=== PATIENT | male | born 1965 | race Caucasian/White ===

== ENCOUNTER 2018-05-20 19:10 | Emergency (ER) | payer MEDICAID ==
[~2018-05-20] VITALS: Ht 185.4 cm; Wt 80.0 kg
[~2018-05-20 19:10] MED LIST: NO HOME MEDS
[2018-05-20 19:40] VITALS: BP 103/79
--- NOTE | 2018-05-20 20:58 | NUR ---
REPORTS FROM REGISTRATION THAT PATIENT BEHAIVOR IS AGRRESIVE TOWARDS OTHER VISITORS AND STAFF IN THE LOBBY. CONSULTED WITH SECURITY. SECURITY REPORTS THAT PATIENT HAS HAD MULTIBLE WARNINGS TONIGHT. (IF YOUR BEHAVIOUR CONTINUES YOU WILL BE ASKED TO LEAVE.)
--- NOTE | 2018-05-20 21:10 | NUR ---
SECURITY REPORTS PATIENT ESCORTED OFF GROUNDS AFTER THREATS TO OTHER PATIENTS AND STAFF CONTINUED AFTER SEVERAL WARNINGS. DR. CAICEDOFS INFORMED.
== END 2018-05-20 21:29 | disposition left against medical advice (07) ==
LOC: ER 19:11
DX: M79.645 Pain in left finger(s) (principal); Z53.21 Procedure and treatment not carried out due to patient leaving prior to being seen by health care provider

== ENCOUNTER 2019-06-03 13:05 | Inpatient (IN) | payer MEDICAID ==
[~2019-06-03] VITALS: Ht 177.8 cm; Wt 75.0 kg
[2019-06-03] MEDS ORDERED: normal saline 1000ML IV soln IVB ONE ×2 (13:50→16:00)
[2019-06-03] MEDS ORDERED: ondansetron/PF 4mg/2ml inj IV ONE (13:50)
[2019-06-03] MEDS ORDERED: thiamine 100mg/ml 2ml inj. IV ONE (13:50)
[2019-06-03 14:18] LABS: BASOPHILS % (AUTO) 0.5 % (0-1); EOSINOPHILS % (AUTO) 0 % (0-6); HEMATOCRIT 43.7 % (42.0-52.0); HEMOGLOBIN 14.8 g/dl (14.0-17.9); LYMPHOCYTES # (AUTO) 0.8 X10'3 (1.1-4.8); LYMPHOCYTES % (AUTO) 9.3 % (21-51); MEAN CORPUSCULAR HEMOGLOBIN 32.5 PG (27.0-31.0); MEAN CORPUSCULAR HGB CONC 33.9 g/dL (33.0-36.5); MEAN CORPUSCULAR VOLUME 95.8 FL (78-98); MONOCYTES # (AUTO) 0.6 X10'3 (0-0.9); MONOCYTES % (AUTO) 7.1 % (2-12); NEUTROPHILS # (AUTO) 7.1 X10'3 (1.8-7.7); NEUTROPHILS % (AUTO) 83.1 % (42-75); PLATELET COUNT 149 X10'3 (140-440); RED BLOOD COUNT 4.56 X10'6 (4.70-6.10); RED CELL DISTRIBUTION WIDTH 13.9 % (11.5-14.5); WHITE BLOOD COUNT 8.6 X10'3 (4.5-11.0)
[2019-06-03] MEDS ORDERED: LORazepam 2 mg/ml vial IV ONE ×2 (14:25→15:50)
[2019-06-03 14:30] LABS: PARTIAL THROMBOPLASTIN TIME 26 SECONDS (22-32)
[2019-06-03 14:32] LABS: ALANINE AMINOTRANSFERASE 170 U/L (12-78); ALBUMIN 4.4 G/DL (3.4-5.0); ALKALINE PHOSPHATASE 86 IU/L (46-116); ANION GAP 25 (8-16); ASPARTATE AMINO TRANSFERASE 231 U/L (10-37); BILIRUBIN,TOTAL 1.6 MG/DL (0.1-1.0); BLOOD UREA NITROGEN 18 MG/DL (7-18); BUN/CREATININE RATIO 14.6 (5.4-32.0); CALCIUM 9.3 MG/DL (8.5-10.1); CHLORIDE 92 MMOL/L (99-107); CREATININE 1.23 MG/DL (0.60-1.10); ETHANOL < 0.010 GM/DL (0.0-0.010); GLUCOSE 142 MG/DL (70-104); POTASSIUM 4.2 MMOL/L (3.5-5.1); SODIUM 137 MMOL/L (135-145); TOTAL CARBON DIOXIDE 19.7 MMOL/L (24-32); TOTAL PROTEIN 8.7 G/DL (6.4-8.2); eGFR 61 ML/MIN
[2019-06-03] MEDS ORDERED: ONDA4TAB12 PO (15:05)
[2019-06-03] MEDS ORDERED: pantoprazole 40 MG vial IV ONE (15:50)
[2019-06-03 16:31] LABS: CLARITY,URINE CLEAR (Clear); COLOR,URINE YELLOW (Yellow); GLUCOSE, URINE NEGATIVE (Neg); KETONES,URINE >=80 mg/dl (Neg); LEUKOCYTE ESTERASE ,URINE NEGATIVE (Neg); NITRITES, URINE NEGATIVE (Neg); OCCULT BLOOD,URINE LARGE (Neg); PROTEIN,URINE >=300 mg/dl (Neg); UROBILINOGEN,URINE 0.2 E.U/dL (0.2-1.0)
[2019-06-03 16:32] LABS: UA COLLECTION TYPE URINAL
[2019-06-03] MEDS ORDERED: acetaminophen 325mg tablet PO PRN (16:35)
[2019-06-03] MEDS ORDERED: magnesium hydroxide 30ml (MOM) UD suspension PO PRN (16:35)
[2019-06-03] MEDS ORDERED: metoclopramide 5 mg/ml inj IV PRN (16:35)
[2019-06-03] MEDS ORDERED: dextrose 50%-water 50ml dispensing syringe IV PRN (16:35)
[2019-06-03] MEDS ORDERED: mag hydrox/Alum hydrox/simeth 30ml oral suspension PO PRN (16:35)
[2019-06-03] MEDS ORDERED: ondansetron/PF 4mg/2ml inj IV PRN (16:35)
[2019-06-03 16:41] LABS: BACTERIA,URINE FEW /HPF (Neg); HYALINE CASTS 0-3 /LPF (NEGATIVE); SQUAMOUS EPITHELIAL CELL,UR FEW /LPF (FEW); WBC,URINE 0-4 /HPF (0-4)
[2019-06-03 16:47] LABS: URINE AMPHETAMINE SCREEN POSITIVE (Neg); URINE BARBITUATE SCREEN NEGATIVE (Neg); URINE BENZODIAZEPINES SCREEN NEGATIVE (Neg); URINE CANNABINOID SCREEN POSITIVE (Neg); URINE COCAINE SCREEN NEGATIVE (Neg); URINE METHADONE SCREEN NEGATIVE (Neg); URINE OPIATE SCREEN NEGATIVE (Neg); URINE PHENCYCLIDINE SCREEN NEGATIVE (Neg)
--- NOTE | 2019-06-03 18:06 | NUR ---
Received report from KIKA Butler. Patient still in ER.
[2019-06-03 18:24] LABS: LIPASE 108 U/L (73-393)
--- NOTE | 2019-06-03 18:28 | NUR ---
gave report to oncoming nurse
--- NOTE | 2019-06-03 18:54 | NUR ---
Received report from KIKA Cruz. Awaiting patient arrival to the floor.
[2019-06-03 19:15] VITALS: BP 141/80
--- NOTE | 2019-06-03 19:15 | NUR ---
Patient arrived via gurney accompanied by RN to floor; placed in 358B. Ambulated to bed with SBA, alert and oriented x4 on room air, in no apparent distress. Call light and items of frequent use within reach. Will continue to monitor.
[2019-06-03] MEDS: pantoprazole 40 MG vial IV SCH (19:23)
[2019-06-03] MEDS: normal saline 1000ml 1,000 ML IV SCH (19:23)
[2019-06-04] VITALS: BP 132/82
[2019-06-04] MEDS: normal saline 1000ml 1,000 ML IV SCH ×3 (03:57→15:11)
[2019-06-04 06:01] LABS: BASOPHILS % (AUTO) 0.1 % (0-1); EOSINOPHILS % (AUTO) 0.2 % (0-6); HEMATOCRIT 37.7 % (42.0-52.0); HEMOGLOBIN 12.8 g/dl (14.0-17.9); LYMPHOCYTES % (AUTO) 14.5 % (21-51); MEAN CORPUSCULAR HEMOGLOBIN 32.4 PG (27.0-31.0); MEAN PLATELET VOLUME 8.3 FL (7.4-10.4); MONOCYTES # (AUTO) 0.8 X10'3 (0-0.9); MONOCYTES % (AUTO) 11.3 % (2-12); NEUTROPHILS # (AUTO) 5.3 X10'3 (1.8-7.7); NEUTROPHILS % (AUTO) 73.9 % (42-75); PLATELET COUNT 113 X10'3 (140-440); RED BLOOD COUNT 3.96 X10'6 (4.70-6.10); WHITE BLOOD COUNT 7.1 X10'3 (4.5-11.0)
[2019-06-04 06:14] LABS: ALBUMIN 3.4 G/DL (3.4-5.0); ANION GAP 11 (8-16); BLOOD UREA NITROGEN 24 MG/DL (7-18); BUN/CREATININE RATIO 21.8 (5.4-32.0); CALCIUM 8.1 MG/DL (8.5-10.1); CHLORIDE 102 MMOL/L (99-107); GLUCOSE 86 MG/DL (70-104); POTASSIUM 3.9 MMOL/L (3.5-5.1); SODIUM 138 MMOL/L (135-145); TOTAL CARBON DIOXIDE 25.4 MMOL/L (24-32); eGFR 70 ML/MIN
--- NOTE | 2019-06-04 06:29 | NUR ---
Problems reprioritized. Patient report given, questions answered & plan of care reviewed with KIKA Christy.
--- NOTE | 2019-06-04 07:03 | NUR ---
Patient in room SANDIP 358. I have received report from Qi ANAND and had the opportunity to ask questions and assume patient care.
[2019-06-04 07:10] VITALS: BP 143/81
[2019-06-04] MEDS: folic acid 1mg tablet PO SCH (08:05)
[2019-06-04] MEDS: thiamine 100mg tablet PO SCH (08:05)
[2019-06-04] MEDS: pantoprazole 40 MG vial IV SCH ×2 (08:06→20:02)
[2019-06-04] MEDS ORDERED: FLU VACC QS2019-20 36MOS UP/PF 60 MCG/0.5 ML SYRINGE IMVAC ONE (10:00)
[2019-06-04] MEDS ORDERED: pneumococcal 23-VAL P-sac vacc 25 mcg/0.5ml vial IMVAC ONE (10:00)
[2019-06-04 12:24] VITALS: BP 130/83
--- NOTE | 2019-06-04 15:19 | NUR ---
Malnutrition consult: Pt seen at bedside states he is unsure of his UBW however reports wt loss from 190 lbs to 165 lbs over greater than one year. If pt truly lost this weight this is non-significant wt loss of 13% in greater than one year. Pt reports wt loss occurred secondary to increasing physical activity. Patient's diet has just been advanced from NPO to clear liquid documented with 100% PO intake. Pt endorsing a good appetite at this time. Pt with no decrease in muscle strength, edema, or visible fat or muscle wasting. Pt currently does not meet criteria for malnutrition. Pt denies food allergies, difficulty chewing/swallowing, or constipation/diarrhea. Pt admitted with DTs currently receiving routine Thiamine and Folic acid. Pt provided with RD contact information. Will remain available. Addendum: 06/04/19 at [address] Amended: Links added.
[2019-06-04 18:00] VITALS: BP 130/69
--- NOTE | 2019-06-04 18:50 | NUR ---
Problems reprioritized. Patient report given, questions answered & plan of care reviewed with Prudence ANAND.
[2019-06-04] MEDS: LORazepam 2 mg/ml vial IV PRN (20:43)
--- NOTE | 2019-06-04 20:43 | NUR ---
Pulled Lorazepam 1.5 mg out of [facility] and Qi RN witnessed waste of 0.5mg from a 2mg vial. However, before physically wasting 0.5mg, it was noted that the order of Lorazepam as indicated fell off EMAR. Therefore, patient received full dose of Lorazepam 2mg/1ml as ordered by MD. Pharmacy notified. Charge nurse aware.
[2019-06-05] VITALS: BP_SYST 115; BP_SYST 130; BP_DIAS 69; BP_DIAS 81
[2019-06-05] MEDS: normal saline 1000ml 1,000 ML IV SCH (00:34)
[2019-06-05 06:03] LABS: BASOPHILS % (AUTO) 0.4 % (0-1); EOSINOPHILS # (AUTO) 0.1 X10'3 (0-0.9); EOSINOPHILS % (AUTO) 1.6 % (0-6); HEMATOCRIT 36.4 % (42.0-52.0); HEMOGLOBIN 12.4 g/dl (14.0-17.9); LYMPHOCYTES # (AUTO) 0.9 X10'3 (1.1-4.8); LYMPHOCYTES % (AUTO) 22.1 % (21-51); MEAN CORPUSCULAR HEMOGLOBIN 32.7 PG (27.0-31.0); MEAN CORPUSCULAR VOLUME 95.9 FL (78-98); MEAN PLATELET VOLUME 7.9 FL (7.4-10.4); MONOCYTES # (AUTO) 0.5 X10'3 (0-0.9); NEUTROPHILS # (AUTO) 2.6 X10'3 (1.8-7.7); NEUTROPHILS % (AUTO) 63.9 % (42-75); PLATELET COUNT 87 X10'3 (140-440); RED CELL DISTRIBUTION WIDTH 13.5 % (11.5-14.5); WHITE BLOOD COUNT 4.1 X10'3 (4.5-11.0)
[2019-06-05 06:26] LABS: ALBUMIN 2.9 G/DL (3.4-5.0); ANION GAP 7 (8-16); BLOOD UREA NITROGEN 14 MG/DL (7-18); BUN/CREATININE RATIO 17.5 (5.4-32.0); CALCIUM 8.2 MG/DL (8.5-10.1); CHLORIDE 102 MMOL/L (99-107); GLUCOSE 101 MG/DL (70-104); POTASSIUM 3.6 MMOL/L (3.5-5.1); SODIUM 136 MMOL/L (135-145); TOTAL CARBON DIOXIDE 27.5 MMOL/L (24-32); eGFR > 90 ML/MIN
--- NOTE | 2019-06-05 06:33 | NUR ---
I have reviewed and agree with all interventions, assessments performed and documented by KIKA Dowell. Problems reprioritized. Patient report given, questions answered & plan of care reviewed with KIKA Christy.
--- NOTE | 2019-06-05 06:35 | NUR ---
Problems reprioritized. Patient report given, questions answered & plan of care reviewed with Jaelyn ANAND.
--- NOTE | 2019-06-05 07:06 | NUR ---
Patient in room SANDIP 358. I have received report from Prudence ANAND and had the opportunity to ask questions and assume patient care.
[2019-06-05] MEDS: pantoprazole 40 MG vial IV SCH (07:30)
[2019-06-05] MEDS: LORazepam 2 mg/ml vial IV PRN (07:35)
[2019-06-05] MEDS: thiamine 100mg tablet PO SCH (07:39)
[2019-06-05] MEDS: folic acid 1mg tablet PO SCH (07:39)
[2019-06-05 08:00] VITALS: BP 138/91
[2019-06-05] MEDS ORDERED: folic acid tablet PO (10:58)
[2019-06-05] MEDS ORDERED: thiamine tablet PO (10:58)
[2019-06-05] MEDS ORDERED: OMEP40CA13 PO (10:58)
--- NOTE | 2019-06-05 11:26 | NUR ---
pt D/C'd per Dr Hutchinson. Pt c/o of chest pain early this morning aggravated by deep breathing. EKG done. ER Dr looked at it. report nothing to be concern at that point. Dr Hutchinson informed.
--- NOTE | 2019-06-05 13:58 | NUR ---
Discharge and medication instructions given to pt. Iv and Tele removed. Pt was escorted to main lobby at 1235. Jarrell passes provided by social and human services assistant.
[2019-06-05] MEDS ORDERED: LORazepam 1 MG tablet PO PRN (16:35)
[2019-06-05] MEDS ORDERED: LORazepam 2 mg/ml vial IV PRN (16:35)
[2019-06-07] MEDS ORDERED: LORazepam 1 MG tablet PO PRN (16:35)
[2019-06-07] MEDS ORDERED: LORazepam 2 mg/ml vial IV PRN (16:35)
== END 2019-06-05 12:37 | disposition home or self-care (01) | DRG 241 ==
LOC: ER 13:06 → ED HOLD 16:32 → EDBEDREQSVC 16:46 → EDBEDREQ 17:50 → SUR 3N 19:08
PROVIDERS: ADMIT Family Medicine; ATTEND Family Medicine
PROC: 3E0234Z Introduction of Serum, Toxoid and Vaccine into Muscle, Percutaneous Approach (ICD-10-PCS; principal; 2019-06-04)
PROC: 3E02340 Introduction of Influenza Vaccine into Muscle, Percutaneous Approach (ICD-10-PCS; 2019-06-04)
DX: K29.20 Alcoholic gastritis without bleeding (principal); N17.0 Acute kidney failure with tubular necrosis; E86.0 Dehydration; Z60.2 Problems related to living alone; F10.230 Alcohol dependence with withdrawal, uncomplicated; F12.90 Cannabis use, unspecified, uncomplicated; F15.10 Other stimulant abuse, uncomplicated; I10 Essential (primary) hypertension; Z72.0 Tobacco use; Z59.0 Homelessness; Z23 Encounter for immunization
CPT/HCPCS: 36415; 71045; 80048; 80053; 80305; 80320; 81001; 82948; 83690; 85025; 85610; 85730; 87081; 90732; 93005; 96374; 96375; 97116; 97161; 97530; 97535; 99285; C9113; G0378; J2060; J2405; J3411; J7030; Q2037

== ENCOUNTER 2021-03-02 18:58 | Emergency (ER) | payer MEDICAID ==
[~2021-03-02] VITALS: Ht 180.3 cm; Wt 80.0 kg
[~2021-03-02 18:58] MED LIST changes: -NO HOME MEDS; +folic acid tablet PO; +thiamine tablet PO
[2021-03-02] MEDS ORDERED: naloxone 0.4 mg/ml inj IV ONE (19:00)
[2021-03-02] MEDS ORDERED: naloxone 2mg/2ml inj 2 MG in normal saline 500ml IV soln 498 ML IV SCH (19:20)
[2021-03-02] MEDS ORDERED: naloxone 2mg/2ml inj IV ONE (19:20)
[2021-03-02] MEDS ORDERED: normal saline 1000ML IV soln IVB ONE (19:20)
[2021-03-02 19:50] LABS: BASOPHILS % (AUTO) 0.3 % (0-1); EOSINOPHILS # (AUTO) 0.1 X10'3 (0-0.9); EOSINOPHILS % (AUTO) 1.5 % (0-6); HEMATOCRIT 39.5 % (42.0-52.0); HEMOGLOBIN 13.4 g/dl (14.0-17.9); LYMPHOCYTES # (AUTO) 2.2 X10'3 (1.1-4.8); LYMPHOCYTES % (AUTO) 54.7 % (21-51); MEAN CORPUSCULAR HEMOGLOBIN 32.2 PG (27.0-31.0); MEAN CORPUSCULAR HGB CONC 33.8 g/dL (33.0-36.5); MEAN CORPUSCULAR VOLUME 95.2 FL (78-98); MONOCYTES # (AUTO) 0.3 X10'3 (0-0.9); MONOCYTES % (AUTO) 6.5 % (2-12); NEUTROPHILS # (AUTO) 1.5 X10'3 (1.8-7.7); PLATELET COUNT 160 X10'3 (140-440); RED BLOOD COUNT 4.15 X10'6 (4.70-6.10); RED CELL DISTRIBUTION WIDTH 14.2 % (11.5-14.5)
[2021-03-02 19:58] LABS: ALANINE AMINOTRANSFERASE 88 U/L (12-78); ALBUMIN 3.4 G/DL (3.4-5.0); ALBUMIN/GLOBULIN RATIO 0.8 (1.1-1.5); ALKALINE PHOSPHATASE 85 IU/L (46-116); ANION GAP 13 (8-16); ASPARTATE AMINO TRANSFERASE 148 U/L (10-37); BILIRUBIN,TOTAL 0.3 MG/DL (0.1-1.0); BLOOD UREA NITROGEN 6 MG/DL (7-18); BUN/CREATININE RATIO 6.8 (5.4-32.0); CALCIUM 7.9 MG/DL (8.5-10.1); CHLORIDE 102 MMOL/L (99-107); CREATININE 0.88 MG/DL (0.60-1.10); GLUCOSE 151 MG/DL (70-104); SODIUM 141 MMOL/L (135-145); TOTAL CARBON DIOXIDE 26.5 MMOL/L (24-32); TOTAL PROTEIN 7.6 G/DL (6.4-8.2); eGFR 90 ML/MIN
[2021-03-02 20:11] LABS: ETHANOL 0.321 GM/DL (0.0-0.010)
[2021-03-02 21:01] LABS: TOTAL CELLS COUNTED 100
[2021-03-02 21:02] LABS: PLATELET ESTIMATE NORMAL
[2021-03-02 21:31] LABS: URINE AMPHETAMINE SCREEN POSITIVE (Neg); URINE BARBITUATE SCREEN NEGATIVE (Neg); URINE BENZODIAZEPINES SCREEN NEGATIVE (Neg); URINE CANNABINOID SCREEN POSITIVE (Neg); URINE COCAINE SCREEN NEGATIVE (Neg); URINE METHADONE SCREEN NEGATIVE (Neg); URINE OPIATE SCREEN NEGATIVE (Neg); URINE PHENCYCLIDINE SCREEN NEGATIVE (Neg)
[2021-03-02 21:33] LABS: CLARITY,URINE CLEAR (Clear); COLOR,URINE YELLOW (Yellow); GLUCOSE, URINE NEGATIVE (Neg); PROTEIN,URINE TRACE mg/dl (Neg); UA COLLECTION TYPE URINAL
[2021-03-02 21:34] LABS: KETONES,URINE NEGATIVE (Neg); LEUKOCYTE ESTERASE ,URINE NEGATIVE (Neg); NITRITES, URINE NEGATIVE (Neg); OCCULT BLOOD,URINE SMALL (Neg); UROBILINOGEN,URINE 0.2 E.U/dL (0.2-1.0)
[2021-03-02 21:37] LABS: BACTERIA,URINE FEW /HPF (Neg); MUCUS STRANDS NONE SEEN /LPF (Neg); SQUAMOUS EPITHELIAL CELL,UR FEW /LPF (FEW); WBC,URINE 0-4 /HPF (0-4)
[2021-03-02] MEDS ORDERED: potassium Cl 10 mEq/100mL bag IV ONE (23:25)
[2021-03-02] MEDS ORDERED: potassium Cl 20 mEq SR tablet PO ONE (23:25)
[2021-03-03 03:07] VITALS: BP 110/67
[2021-03-03] MEDS ORDERED: NO HOME MEDS (20:21)
== END 2021-03-03 03:09 | disposition home or self-care (01) ==
LOC: ER 18:59
DX: T40.411A Poisoning by fentanyl or fentanyl analogs, accidental (unintentional), initial encounter (principal); R09.2 Respiratory arrest; R00.0 Tachycardia, unspecified; I10 Essential (primary) hypertension; F12.90 Cannabis use, unspecified, uncomplicated; E87.6 Hypokalemia; F15.10 Other stimulant abuse, uncomplicated; Z72.89 Other problems related to lifestyle; Z60.2 Problems related to living alone; Z59.00 Homelessness unspecified; Z56.0 Unemployment, unspecified; Z79.899 Other long term (current) drug therapy; Y92.89 Other specified places as the place of occurrence of the external cause
CPT/HCPCS: 36415; 71045; 80053; 80305; 80320; 81001; 84484; 85007; 85025; 93005; 96365; 96375; 99285; J2310; J3480; J7030

== ENCOUNTER 2021-03-03 15:34 | Inpatient (IN) | payer MEDICAID ==
[~2021-03-03] VITALS: Ht 185.4 cm; Wt 73.5 kg
--- NOTE | 2021-03-03 18:00 | NUR ---
PATIENT RECEIVED IN BED 6.
[2021-03-03] MEDS ORDERED: normal saline 1000ML IV soln IV ONE ×2 (18:10→19:00)
[2021-03-03] MEDS ORDERED: CLINDAMYCIN/D5W 900mg/50ml 50 ML IV ONE (18:35)
[2021-03-03 18:39] LABS: BASOPHILS % (AUTO) 0.4 % (0-1); EOSINOPHILS % (AUTO) 0.4 % (0-6); HEMATOCRIT 44.3 % (42.0-52.0); HEMOGLOBIN 15.2 g/dl (14.0-17.9); LYMPHOCYTES # (AUTO) 0.8 X10'3 (1.1-4.8); LYMPHOCYTES % (AUTO) 8.6 % (21-51); MEAN CORPUSCULAR HEMOGLOBIN 32.2 PG (27.0-31.0); MEAN CORPUSCULAR HGB CONC 34.4 g/dL (33.0-36.5); MEAN CORPUSCULAR VOLUME 93.6 FL (78-98); MEAN PLATELET VOLUME 7.6 FL (7.4-10.4); MONOCYTES # (AUTO) 0.5 X10'3 (0-0.9); MONOCYTES % (AUTO) 5.4 % (2-12); NEUTROPHILS # (AUTO) 7.9 X10'3 (1.8-7.7); NEUTROPHILS % (AUTO) 85.2 % (42-75); PLATELET COUNT 159 X10'3 (140-440); RED BLOOD COUNT 4.73 X10'6 (4.70-6.10); RED CELL DISTRIBUTION WIDTH 13.8 % (11.5-14.5); WHITE BLOOD COUNT 9.3 X10'3 (4.5-11.0)
[2021-03-03 18:50] LABS: ALANINE AMINOTRANSFERASE 77 U/L (12-78); ALBUMIN 3.3 G/DL (3.4-5.0); ALBUMIN/GLOBULIN RATIO 0.7 (1.1-1.5); ALKALINE PHOSPHATASE 41 IU/L (46-116); ANION GAP 13 (8-16); ASPARTATE AMINO TRANSFERASE 75 U/L (10-37); BILIRUBIN,TOTAL 0.7 MG/DL (0.1-1.0); BLOOD UREA NITROGEN 15 MG/DL (7-18); BUN/CREATININE RATIO 13.4 (5.4-32.0); CALCIUM 8.6 MG/DL (8.5-10.1); CHLORIDE 102 MMOL/L (99-107); CREATININE 1.12 MG/DL (0.60-1.10); GLUCOSE 126 MG/DL (70-104); MAGNESIUM 1.1 MG/DL (1.5-2.4); POTASSIUM 4.7 MMOL/L (3.5-5.1); SODIUM 144 MMOL/L (135-145); TOTAL CARBON DIOXIDE 28.8 MMOL/L (24-32); eGFR 68 ML/MIN
[2021-03-03] MEDS: normal saline 1000ml 1,000 ML IV SCH (19:50)
[2021-03-03] MEDS ORDERED: acetaminophen 325mg tablet PO PRN (19:50)
[2021-03-03] MEDS ORDERED: magnesium hydroxide 30ml (MOM) UD suspension PO PRN (19:50)
[2021-03-03] MEDS ORDERED: mag hydrox/Alum hydrox/simeth 30ml oral suspension PO PRN (19:50)
[2021-03-03] MEDS ORDERED: CefTRIAXone/D5W-Rocephin 1gm 50 ML IV ONE (20:00)
[2021-03-03] MEDS ORDERED: LORazepam 2 mg/ml vial IV PRN ×2 (20:00)
[2021-03-03] MEDS ORDERED: thiamine inj. 100 MG in normal saline 100ml IV soln 100 ML IV ONE (20:00)
[2021-03-03] MEDS ORDERED: NO HOME MEDS (20:21)
[2021-03-03] MEDS: docusate sod 100mg capsule PO SCH (20:53)
[2021-03-03] MEDS: heparin, porcine 5000 units/ml vial SQ SCH (20:54)
[2021-03-03] MEDS: thiamine 100mg tablet PO SCH (20:59)
--- NOTE | 2021-03-03 21:23 | NUR ---
Patient in room . I have received report from MATERIAL PLANNING ANALYSTKIKA ABURTO and had the opportunity to ask questions and will assume patient care upon arrival to the floor. Addendum: 03/03/21 at 2124 by Jacqueline Perez RN Amended: Links added.
[2021-03-03 22:00] VITALS: BP 147/89
--- NOTE | 2021-03-03 23:00 | NUR ---
PT C/O ALL OVER BODY PAIN MEDICATED WITH TYLENOL FOR IT.
[2021-03-04] VITALS (7 sets, daily range): BP systolic 134–167; BP diastolic 82–96
[2021-03-04] MEDS: normal saline 1000ml 1,000 ML IV SCH ×3 (00:05→22:35)
--- NOTE | 2021-03-04 01:00 | NUR ---
UP TO BRP HAD A BM & VOID TOLERATED FAIR.
[2021-03-04] MEDS: CefTRIAXone/D5W-Rocephin 1gm 50 ML IV SCH (01:54)
[2021-03-04] MEDS: CLINDAMYCIN 300mg/NS 50ml IVPB 50 ML IV SCH ×4 (02:03→21:24)
--- NOTE | 2021-03-04 06:09 | NUR ---
Problems reprioritized. Patient report given, questions answered & plan of care reviewed with YOMI ANAND. Addendum: 03/04/21 at 0611 by Jacqueline Perez RN Amended: Links added.
--- NOTE | 2021-03-04 06:13 | NUR ---
Patient in room PCU 3023. I have received report from Vivian ANAND and had the opportunity to ask questions and assume patient care.
[2021-03-04 06:31] LABS: BASOPHILS % (AUTO) 0.1 % (0-1); EOSINOPHILS % (AUTO) 0.2 % (0-6); HEMATOCRIT 36.3 % (42.0-52.0); HEMOGLOBIN 12.4 g/dl (14.0-17.9); LYMPHOCYTES # (AUTO) 1.2 X10'3 (1.1-4.8); LYMPHOCYTES % (AUTO) 16.7 % (21-51); MEAN CORPUSCULAR HEMOGLOBIN 32.1 PG (27.0-31.0); MEAN CORPUSCULAR HGB CONC 34.1 g/dL (33.0-36.5); MEAN CORPUSCULAR VOLUME 94.2 FL (78-98); MEAN PLATELET VOLUME 7.8 FL (7.4-10.4); MONOCYTES # (AUTO) 0.4 X10'3 (0-0.9); MONOCYTES % (AUTO) 6.1 % (2-12); NEUTROPHILS # (AUTO) 5.4 X10'3 (1.8-7.7); NEUTROPHILS % (AUTO) 76.9 % (42-75); PLATELET COUNT 114 X10'3 (140-440); RED BLOOD COUNT 3.85 X10'6 (4.70-6.10); RED CELL DISTRIBUTION WIDTH 13.9 % (11.5-14.5)
[2021-03-04 06:37] LABS: ALANINE AMINOTRANSFERASE 53 U/L (12-78); ALBUMIN 2.4 G/DL (3.4-5.0); ALBUMIN/GLOBULIN RATIO 0.6 (1.1-1.5); ALKALINE PHOSPHATASE 27 IU/L (46-116); ANION GAP 10 (8-16); ASPARTATE AMINO TRANSFERASE 59 U/L (10-37); BILIRUBIN,TOTAL 0.6 MG/DL (0.1-1.0); BLOOD UREA NITROGEN 13 MG/DL (7-18); BUN/CREATININE RATIO 19.1 (5.4-32.0); CALCIUM 7.4 MG/DL (8.5-10.1); CHLORIDE 106 MMOL/L (99-107); CREATININE 0.68 MG/DL (0.60-1.10); GLUCOSE 92 MG/DL (70-104); POTASSIUM 3.6 MMOL/L (3.5-5.1); SODIUM 142 MMOL/L (135-145); TOTAL CARBON DIOXIDE 25.9 MMOL/L (24-32); TOTAL PROTEIN 6.1 G/DL (6.4-8.2); eGFR > 90 ML/MIN
[2021-03-04 07:12] LABS: MAGNESIUM 1.1 MG/DL (1.5-2.4)
[2021-03-04] MEDS: docusate sod 100mg capsule PO SCH ×2 (07:53→21:22)
[2021-03-04] MEDS: thiamine 100mg tablet PO SCH (07:53)
[2021-03-04] MEDS: heparin, porcine 5000 units/ml vial SQ SCH ×2 (07:56→21:24)
--- NOTE | 2021-03-04 08:21 | NUR ---
Paged Dr. Jacobson Re: Shorty Schulte, [id number]. Pt SOB, may I have orders for RT EVAL and mg protocol repl? Current value 1.1. Please Advise, Mikala ANAND [phone]
--- NOTE | 2021-03-04 09:45 | NUR ---
Dr. Jacobson at bedside with Nurse and patient. MD aware of pts chest X ray. New orders; replacement protocol for mg/K+, Sputu, culture, Morphine 2mg Q4 PRN for pain and [place] 5 Q4 PRN. RT eval, PT eval and Seizure precautions. We will continue to monitor.
[2021-03-04] MEDS ORDERED: potassium Cl 40MEQ/1/2NS 520ml 520 ML IV PRN (09:50)
[2021-03-04] MEDS ORDERED: magnesium 4gm in 100ml NS 100 ML IV PRN (09:50)
[2021-03-04] MEDS ORDERED: potassium Cl 20 mEq SR tablet PO PRN (09:50)
[2021-03-04] MEDS ORDERED: COVID-19 VACC, MRNA(PFIZER)/PF--BNT162b2 syringe IMVAC ONE (10:00)
[2021-03-04] MEDS: HYDROcodone/acetaminophen 5mg/325mg tablet PO PRN ×3 (10:40→21:23)
[2021-03-04] MEDS: magnesium Cl slow-release 64mg tablet PO PRN ×2 (10:40→17:03)
[2021-03-04] MEDS: morphine 2 MG/ML inj. syringe IV PRN ×2 (10:41→15:58)
--- NOTE | 2021-03-04 11:20 | NUR ---
Malnutrition consult: Most recent scaled wt hx in [facility] is 75 kg taken 06/03/2019 with gurney scale, current scaled wt is 77.27 kg. Wt appears stable. Pending documentation of PO intake on regular diet. Pt with no documented decrease in muscle strength or edema. Pt currently lacks a minimum of two criteria for malnutrition. Will continue to follow and monitor qualifying criteria. Addendum: 03/04/21 at [address] Amended: Links added.
--- NOTE | 2021-03-04 11:45 | NUR ---
Dr. Jacobson called to request PBNP and trops to be done now. Orders in and lab called. We will continue to monitor.
--- NOTE | 2021-03-04 14:36 | NUR ---
Paged Dr. Jacobson PAGER ID: [phone] MESSAGE: Re: Shorty Schulte [id number]. Lab results are in. Trops 76, EVYX 946. Please advise, Mikala ANAND [phone] Addendum: 03/04/21 at 1448 by Mikala Clinton RN Dr. Jacobson is aware of labs. New order ECHO. Will continue to monitor.
--- NOTE | 2021-03-04 14:37 | NUR ---
Requested meds. Please send Zithromax IV bag for pt. Thank you
[2021-03-04] MEDS ORDERED: PERFLUTREN PROTEIN-A MICROSPHR (Optison) 0.22 MG/ML 3ML VIAL IV ONE (14:50)
[2021-03-04] MEDS: azithromycin/NS 500mg/250ml 250 ML IV SCH (15:57)
--- NOTE | 2021-03-04 16:24 | NUR ---
Paged Dr. Jacobson PAGER ID: [phone] MESSAGE: Re: Shorty Schulte [id number]. Pt tropin levels are now 78 critical value. Thank you Mikala ANAND [phone]
--- NOTE | 2021-03-04 18:07 | NUR ---
Problems reprioritized. Patient report given, questions answered & plan of care reviewed with Rebeca ANAND.
--- NOTE | 2021-03-04 18:15 | NUR ---
Patient in room PCU 3023. I have received report from KIKA Bach and had the opportunity to ask questions and assume patient care.
--- NOTE | 2021-03-04 18:37 | NUR ---
Patient in room PCU 3023. I have received report from Mikala ANAND and had the opportunity to ask questions and assume patient care.
[2021-03-04] MEDS: K and/or MAG REPLACEMENT MC SCH (20:00)
[2021-03-04] MEDS: lactobacillus rhamnosus 10,000 MMU CELLS/CAPSULE PO SCH (21:21)
[2021-03-05] MEDS: CLINDAMYCIN 300mg/NS 50ml IVPB 50 ML IV SCH ×4 (01:59→20:05)
[2021-03-05] MEDS: HYDROcodone/acetaminophen 5mg/325mg tablet PO PRN ×3 (02:15→14:28)
[2021-03-05 02:30] VITALS: BP 156/103
[2021-03-05 02:32] VITALS: BP 160/93
[2021-03-05] MEDS: morphine 2 MG/ML inj. syringe IV PRN ×2 (03:27→08:01)
[2021-03-05 05:56] LABS: ALANINE AMINOTRANSFERASE 43 U/L (12-78); ALBUMIN 2.3 G/DL (3.4-5.0); ALBUMIN/GLOBULIN RATIO 0.6 (1.1-1.5); ALKALINE PHOSPHATASE 40 IU/L (46-116); ANION GAP 9 (8-16); ASPARTATE AMINO TRANSFERASE 46 U/L (10-37); BILIRUBIN,TOTAL 0.8 MG/DL (0.1-1.0); BLOOD UREA NITROGEN 10 MG/DL (7-18); BUN/CREATININE RATIO 15.2 (5.4-32.0); CALCIUM 8.1 MG/DL (8.5-10.1); CHLORIDE 100 MMOL/L (99-107); CREATININE 0.66 MG/DL (0.60-1.10); GLUCOSE 96 MG/DL (70-104); POTASSIUM 3.3 MMOL/L (3.5-5.1); SODIUM 137 MMOL/L (135-145); TOTAL CARBON DIOXIDE 27.8 MMOL/L (24-32); TOTAL PROTEIN 6.2 G/DL (6.4-8.2); eGFR > 90 ML/MIN
[2021-03-05 06:05] LABS: BASOPHILS % (AUTO) 0.1 % (0-1); EOSINOPHILS % (AUTO) 0.5 % (0-6); HEMATOCRIT 36.5 % (42.0-52.0); HEMOGLOBIN 12.7 g/dl (14.0-17.9); LYMPHOCYTES # (AUTO) 0.8 X10'3 (1.1-4.8); LYMPHOCYTES % (AUTO) 10.4 % (21-51); MEAN CORPUSCULAR HEMOGLOBIN 32.7 PG (27.0-31.0); MEAN CORPUSCULAR HGB CONC 34.9 g/dL (33.0-36.5); MEAN CORPUSCULAR VOLUME 93.8 FL (78-98); MONOCYTES # (AUTO) 0.4 X10'3 (0-0.9); MONOCYTES % (AUTO) 5.4 % (2-12); NEUTROPHILS # (AUTO) 6.6 X10'3 (1.8-7.7); NEUTROPHILS % (AUTO) 83.6 % (42-75); PLATELET COUNT 114 X10'3 (140-440); RED BLOOD COUNT 3.89 X10'6 (4.70-6.10); RED CELL DISTRIBUTION WIDTH 13.5 % (11.5-14.5); WHITE BLOOD COUNT 7.9 X10'3 (4.5-11.0)
--- NOTE | 2021-03-05 06:30 | NUR ---
Patient in room PCU 3023. I have received report from Rebeca ANAND and had the opportunity to ask questions and assume patient care.
--- NOTE | 2021-03-05 06:45 | NUR ---
Problems reprioritized. Patient report given, questions answered & plan of care reviewed with Gera, RN and Marvin, student RN.
--- NOTE | 2021-03-05 07:12 | NUR ---
I have reviewed all the notes of this nursing education consultant, Dileep Thompson, and agree with assessments and documentation there in.
--- NOTE | 2021-03-05 07:24 | NUR ---
Student Medication Administration: For this medication-pass time frame, all medication were reviewed, dispensed, administered and documented per hospital policy by Dileep Thompson RN.
[2021-03-05 07:38] VITALS: BP 151/94
[2021-03-05] MEDS: thiamine 100mg tablet PO SCH (07:54)
[2021-03-05] MEDS: lactobacillus rhamnosus 10,000 MMU CELLS/CAPSULE PO SCH ×2 (07:54→20:05)
[2021-03-05] MEDS: docusate sod 100mg capsule PO SCH ×2 (07:54→20:05)
[2021-03-05] MEDS: normal saline 1000ml 1,000 ML IV SCH ×2 (07:57→20:07)
[2021-03-05] MEDS: K and/or MAG REPLACEMENT MC SCH ×2 (08:00→20:00)
[2021-03-05] MEDS: heparin, porcine 5000 units/ml vial SQ SCH ×2 (08:05→20:06)
[2021-03-05] MEDS: ondansetron/PF 4mg/2ml inj IV PRN (08:11)
[2021-03-05] MEDS: CefTRIAXone/D5W-Rocephin 1gm 50 ML IV SCH (08:57)
[2021-03-05] MEDS: azithromycin/NS 500mg/250ml 250 ML IV SCH (09:57)
[2021-03-05 11:58] VITALS: BP 128/79
[2021-03-05] MEDS: potassium Cl 20 mEq SR tablet PO PRN ×3 (13:08→23:29)
[2021-03-05 15:25] LABS: MAGNESIUM 1.2 MG/DL (1.5-2.4)
[2021-03-05 16:01] VITALS: BP 131/76
[2021-03-05] MEDS: magnesium Cl slow-release 64mg tablet PO PRN ×2 (17:17→23:29)
--- NOTE | 2021-03-05 17:44 | NUR ---
Student documentation: I have reviewed and agree with all interventions, assessments performed and documented by Tee JEFFERY.
--- NOTE | 2021-03-05 18:25 | NUR ---
Problems reprioritized. Patient report given, questions answered & plan of care reviewed with Alley ANAND.
[2021-03-05 18:30] VITALS: BP 134/79
--- NOTE | 2021-03-05 18:30 | NUR ---
Patient in room U 3023. I have received report from KIKA Boss and had the opportunity to ask questions and assume patient care. Addendum: 03/05/21 at 1932 by Anuja Porter RN Amended: Links added.
[2021-03-06 02:00] VITALS: BP 151/101
--- NOTE | 2021-03-06 02:00 | NUR ---
B/P ELEVATED C/O PAIN AFTER COUGHING, SL AGITATED Addendum: 03/06/21 at 0250 by Anuja Porter RN Amended: Links added.
[2021-03-06] MEDS: CLINDAMYCIN 300mg/NS 50ml IVPB 50 ML IV SCH ×4 (02:19→22:00)
[2021-03-06] MEDS: HYDROcodone/acetaminophen 5mg/325mg tablet PO PRN ×2 (02:26→22:22)
[2021-03-06] MEDS: normal saline 1000ml 1,000 ML IV SCH ×2 (05:33→13:20)
--- NOTE | 2021-03-06 05:41 | NUR ---
DEBRA TAKES OXYGEN OFF AND SATS DROP DOWN IN 80 AND BRIEFLY HIGH 70'S. SAT IN THE 90'S ON 6 L N/C Addendum: 03/06/21 at 0541 by Anuja Porter RN Amended: Links added.
[2021-03-06 06:00] VITALS: BP 151/98
--- NOTE | 2021-03-06 06:24 | NUR ---
Problems reprioritized. Patient report given, questions answered & plan of care reviewed with KIKA Regan. Addendum: 03/06/21 at 0624 by Anuja Porter RN Amended: Links added.
[2021-03-06 06:53] LABS: ALANINE AMINOTRANSFERASE 34 U/L (12-78); ALBUMIN 2.2 G/DL (3.4-5.0); ALBUMIN/GLOBULIN RATIO 0.6 (1.1-1.5); ALKALINE PHOSPHATASE 57 IU/L (46-116); ANION GAP 8 (8-16); ASPARTATE AMINO TRANSFERASE 35 U/L (10-37); BASOPHILS % (AUTO) 0.1 % (0-1); BILIRUBIN,TOTAL 0.8 MG/DL (0.1-1.0); BLOOD UREA NITROGEN 9 MG/DL (7-18); CALCIUM 7.9 MG/DL (8.5-10.1); CHLORIDE 103 MMOL/L (99-107); CREATININE 0.69 MG/DL (0.60-1.10); EOSINOPHILS # (AUTO) 0.1 X10'3 (0-0.9); EOSINOPHILS % (AUTO) 1.5 % (0-6); GLUCOSE 91 MG/DL (70-104); HEMATOCRIT 35.4 % (42.0-52.0); HEMOGLOBIN 12.2 g/dl (14.0-17.9); LYMPHOCYTES # (AUTO) 1.1 X10'3 (1.1-4.8); LYMPHOCYTES % (AUTO) 18.7 % (21-51); MEAN CORPUSCULAR HEMOGLOBIN 31.9 PG (27.0-31.0); MEAN CORPUSCULAR HGB CONC 34.5 g/dL (33.0-36.5); MEAN CORPUSCULAR VOLUME 92.3 FL (78-98); MEAN PLATELET VOLUME 7.7 FL (7.4-10.4); MONOCYTES # (AUTO) 0.6 X10'3 (0-0.9); MONOCYTES % (AUTO) 10.4 % (2-12); NEUTROPHILS % (AUTO) 69.3 % (42-75); PLATELET COUNT 131 X10'3 (140-440); POTASSIUM 3.6 MMOL/L (3.5-5.1); RED BLOOD COUNT 3.84 X10'6 (4.70-6.10); RED CELL DISTRIBUTION WIDTH 13.5 % (11.5-14.5); SODIUM 140 MMOL/L (135-145); TOTAL CARBON DIOXIDE 29.1 MMOL/L (24-32); TOTAL PROTEIN 6.1 G/DL (6.4-8.2); WHITE BLOOD COUNT 5.7 X10'3 (4.5-11.0); eGFR > 90 ML/MIN
[2021-03-06] MEDS: thiamine 100mg tablet PO SCH (07:57)
[2021-03-06] MEDS: lactobacillus rhamnosus 10,000 MMU CELLS/CAPSULE PO SCH ×2 (07:57→22:01)
[2021-03-06] MEDS: heparin, porcine 5000 units/ml vial SQ SCH ×2 (07:58→22:00)
[2021-03-06] MEDS: docusate sod 100mg capsule PO SCH ×2 (07:58→20:00)
[2021-03-06] MEDS ORDERED: magnesium Cl slow-release 64mg tablet PO PRN ×2 (08:16→08:20)
[2021-03-06] MEDS: CefTRIAXone/D5W-Rocephin 1gm 50 ML IV SCH (08:21)
[2021-03-06] MEDS: azithromycin/NS 500mg/250ml 250 ML IV SCH (08:21)
[2021-03-06] MEDS: K and/or MAG REPLACEMENT MC SCH ×2 (08:44→20:00)
[2021-03-06] MEDS: ondansetron/PF 4mg/2ml inj IV PRN (08:45)
[2021-03-06] MEDS: morphine 2 MG/ML inj. syringe IV PRN ×2 (08:45→13:21)
[2021-03-06] MEDS ORDERED: COVID-19 VACC, MRNA(PFIZER)/PF--BNT162b2 syringe IMVAC ONE (10:00)
--- NOTE | 2021-03-06 10:30 | NUR ---
CALLED PHARMACY IN REGARDS TO PFIZER VACCINE, THEY STATE IT WILL BE READY AFTER 1200
[2021-03-06 11:00] VITALS: BP 136/86
--- NOTE | 2021-03-06 11:03 | NUR ---
Dr Murphy saw pt and advised to remove pt from oxygen. pt was taken off and sats dropped to the 70's. pt was placed back on 6L as previous
[2021-03-06 15:00] VITALS: BP 150/86
[2021-03-06 18:00] VITALS: BP 184/94
[2021-03-06 22:00] VITALS: BP 146/85
[2021-03-07] MEDS: CLINDAMYCIN 300mg/NS 50ml IVPB 50 ML IV SCH ×4 (01:40→19:32)
[2021-03-07 02:00] VITALS: BP 145/93
[2021-03-07 06:00] VITALS: BP 142/65
--- NOTE | 2021-03-07 06:26 | NUR ---
Problems reprioritized. Patient report given, questions answered & plan of care reviewed with KIKA Regan.
[2021-03-07 06:57] LABS: BASOPHILS % (AUTO) 0.4 % (0-1); EOSINOPHILS # (AUTO) 0.1 X10'3 (0-0.9); EOSINOPHILS % (AUTO) 1.9 % (0-6); HEMATOCRIT 35.6 % (42.0-52.0); HEMOGLOBIN 12.3 g/dl (14.0-17.9); LYMPHOCYTES % (AUTO) 18.4 % (21-51); MEAN CORPUSCULAR HEMOGLOBIN 32.1 PG (27.0-31.0); MEAN CORPUSCULAR HGB CONC 34.5 g/dL (33.0-36.5); MEAN PLATELET VOLUME 7.3 FL (7.4-10.4); MONOCYTES # (AUTO) 1.2 X10'3 (0-0.9); MONOCYTES % (AUTO) 21.9 % (2-12); NEUTROPHILS # (AUTO) 3.3 X10'3 (1.8-7.7); NEUTROPHILS % (AUTO) 57.4 % (42-75); PLATELET COUNT 143 X10'3 (140-440); RED BLOOD COUNT 3.83 X10'6 (4.70-6.10); RED CELL DISTRIBUTION WIDTH 13.6 % (11.5-14.5); WHITE BLOOD COUNT 5.7 X10'3 (4.5-11.0)
[2021-03-07] MEDS: azithromycin 250mg tablet PO SCH (07:43)
[2021-03-07] MEDS: CefTRIAXone/D5W-Rocephin 1gm 50 ML IV SCH (07:43)
[2021-03-07] MEDS: docusate sod 100mg capsule PO SCH ×2 (07:44→19:33)
[2021-03-07] MEDS: lactobacillus rhamnosus 10,000 MMU CELLS/CAPSULE PO SCH ×2 (07:44→19:33)
[2021-03-07] MEDS: thiamine 100mg tablet PO SCH (07:44)
[2021-03-07] MEDS: heparin, porcine 5000 units/ml vial SQ SCH ×2 (07:45→19:34)
[2021-03-07] MEDS: K and/or MAG REPLACEMENT MC SCH ×2 (07:46→19:33)
[2021-03-07 08:27] LABS: ALANINE AMINOTRANSFERASE 35 U/L (12-78); ALBUMIN 2.3 G/DL (3.4-5.0); ALBUMIN/GLOBULIN RATIO 0.6 (1.1-1.5); ALKALINE PHOSPHATASE 59 IU/L (46-116); ANION GAP 8 (8-16); ASPARTATE AMINO TRANSFERASE 40 U/L (10-37); BILIRUBIN,TOTAL 0.7 MG/DL (0.1-1.0); BLOOD UREA NITROGEN 8 MG/DL (7-18); BUN/CREATININE RATIO 11.1 (5.4-32.0); CALCIUM 8.2 MG/DL (8.5-10.1); CHLORIDE 101 MMOL/L (99-107); CREATININE 0.72 MG/DL (0.60-1.10); GLUCOSE 97 MG/DL (70-104); POTASSIUM 3.5 MMOL/L (3.5-5.1); SODIUM 139 MMOL/L (135-145); TOTAL CARBON DIOXIDE 30.1 MMOL/L (24-32); TOTAL PROTEIN 6.3 G/DL (6.4-8.2); eGFR > 90 ML/MIN
[2021-03-07] MEDS: HYDROcodone/acetaminophen 5mg/325mg tablet PO PRN ×3 (08:46→19:49)
--- NOTE | 2021-03-07 09:41 | NUR ---
Met with patient in regards to alcohol use and to see if patient was interested in treatment. Patient would like to go to rehab. I gave patient my card and when he is close to discharge I will help patient with getting into a rehab facility.
[2021-03-07 10:13] LABS: PLATELET ESTIMATE NORMAL; TOTAL CELLS COUNTED 100
[2021-03-07 11:00] VITALS: BP 154/45
[2021-03-07] MEDS: normal saline 1000ml 1,000 ML IV SCH ×2 (13:50→23:50)
[2021-03-07 15:00] VITALS: BP 110/63
[2021-03-07] MEDS ORDERED: albuterol 2.5 MG/3 ML nebule NEB PRN (16:50)
[2021-03-07] MEDS ORDERED: ipratropium/albuterol 3ml nebule NEB PRN (16:50)
[2021-03-07 18:00] VITALS: BP 163/103
[2021-03-07] MEDS: methylPREDNISolone sod succ/PF 40mg inj. IV SCH (19:32)
[2021-03-07 22:00] VITALS: BP 139/93
[2021-03-08 02:00] VITALS: BP 159/68
[2021-03-08] MEDS: CLINDAMYCIN 300mg/NS 50ml IVPB 50 ML IV SCH ×4 (02:52→20:49)
[2021-03-08] MEDS: normal saline 1000ml 1,000 ML IV SCH ×3 (02:53→20:48)
[2021-03-08 06:00] VITALS: BP 145/90
--- NOTE | 2021-03-08 06:29 | NUR ---
Problems reprioritized. Patient report given, questions answered & plan of care reviewed with KIKA Sauceda.
[2021-03-08 06:50] LABS: BASOPHILS % (AUTO) 0.3 % (0-1); EOSINOPHILS % (AUTO) 0 % (0-6); HEMATOCRIT 39.8 % (42.0-52.0); HEMOGLOBIN 13.8 g/dl (14.0-17.9); LYMPHOCYTES # (AUTO) 0.7 X10'3 (1.1-4.8); LYMPHOCYTES % (AUTO) 20.7 % (21-51); MEAN CORPUSCULAR HEMOGLOBIN 31.8 PG (27.0-31.0); MEAN CORPUSCULAR HGB CONC 34.5 g/dL (33.0-36.5); MEAN CORPUSCULAR VOLUME 92.1 FL (78-98); MEAN PLATELET VOLUME 7.8 FL (7.4-10.4); MONOCYTES # (AUTO) 0.6 X10'3 (0-0.9); MONOCYTES % (AUTO) 17.3 % (2-12); NEUTROPHILS # (AUTO) 2.2 X10'3 (1.8-7.7); NEUTROPHILS % (AUTO) 61.7 % (42-75); PLATELET COUNT 197 X10'3 (140-440); RED BLOOD COUNT 4.32 X10'6 (4.70-6.10); RED CELL DISTRIBUTION WIDTH 13.7 % (11.5-14.5); WHITE BLOOD COUNT 3.6 X10'3 (4.5-11.0)
[2021-03-08 07:36] LABS: ALANINE AMINOTRANSFERASE 30 U/L (12-78); ALBUMIN 2.4 G/DL (3.4-5.0); ALBUMIN/GLOBULIN RATIO 0.5 (1.1-1.5); ALKALINE PHOSPHATASE 60 IU/L (46-116); ANION GAP 12 (8-16); ASPARTATE AMINO TRANSFERASE 27 U/L (10-37); BILIRUBIN,TOTAL 0.6 MG/DL (0.1-1.0); BLOOD UREA NITROGEN 13 MG/DL (7-18); BUN/CREATININE RATIO 18.3 (5.4-32.0); CALCIUM 8.7 MG/DL (8.5-10.1); CHLORIDE 101 MMOL/L (99-107); CREATININE 0.71 MG/DL (0.60-1.10); GLUCOSE 160 MG/DL (70-104); POTASSIUM 4.1 MMOL/L (3.5-5.1); SODIUM 139 MMOL/L (135-145); TOTAL CARBON DIOXIDE 26.3 MMOL/L (24-32); TOTAL PROTEIN 7.2 G/DL (6.4-8.2); eGFR > 90 ML/MIN
[2021-03-08] MEDS: CefTRIAXone/D5W-Rocephin 1gm 50 ML IV SCH (07:38)
[2021-03-08] MEDS: lactobacillus rhamnosus 10,000 MMU CELLS/CAPSULE PO SCH ×2 (07:39→20:49)
[2021-03-08] MEDS: docusate sod 100mg capsule PO SCH ×2 (07:39→20:00)
[2021-03-08] MEDS: thiamine 100mg tablet PO SCH (07:39)
[2021-03-08] MEDS: heparin, porcine 5000 units/ml vial SQ SCH ×2 (07:39→20:49)
[2021-03-08] MEDS: methylPREDNISolone sod succ/PF 40mg inj. IV SCH ×2 (07:39→20:50)
[2021-03-08] MEDS: azithromycin 250mg tablet PO SCH (07:39)
[2021-03-08] MEDS: K and/or MAG REPLACEMENT MC SCH ×2 (08:00→20:00)
[2021-03-08 11:00] VITALS: BP 121/80
[2021-03-08] MEDS: HYDROcodone/acetaminophen 5mg/325mg tablet PO PRN ×3 (11:01→20:50)
--- NOTE | 2021-03-08 11:25 | NUR ---
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 Pt w/ low PO intake on Regular diet, avg 32% x 9 meals not meeting needs. Pt states he likes fruit and is willing to try Ensure, no other food preferences voiced. LBM 03/04 receiving routine colace. Will continue to monitor. Recs: 1. Continue Regular diet as tolerated 2. Fruit cup BID BL per pt preference 3. Ensure Enlive BID BD; pending MD approval 4. Bowel care per rx 5. Weekly wts Addendum: 03/08/21 at [address] Amended: Links added.
[2021-03-08 15:00] VITALS: BP 154/93
[2021-03-08] MEDS: lactose-reduced food (Ensure Enlive) - 237ml bottle PO SCH (17:30)
[2021-03-08 18:00] VITALS: BP 151/99
[2021-03-08 22:00] VITALS: BP 140/77
[2021-03-09] VITALS (8 sets, daily range): BP systolic 139–153; BP diastolic 80–97
[2021-03-09] MEDS: CLINDAMYCIN 300mg/NS 50ml IVPB 50 ML IV SCH ×4 (02:53→20:16)
--- NOTE | 2021-03-09 06:15 | NUR ---
Problems reprioritized. Patient report given, questions answered & plan of care reviewed with KIKA Sauceda.
[2021-03-09] MEDS: K and/or MAG REPLACEMENT MC SCH ×2 (08:00→20:00)
[2021-03-09] MEDS ORDERED: LIDOcaine/PRILOcaine 5gm cream TP PRN (09:25)
[2021-03-09] MEDS: thiamine 100mg tablet PO SCH (09:29)
[2021-03-09] MEDS: heparin, porcine 5000 units/ml vial SQ SCH ×2 (09:29→20:18)
[2021-03-09] MEDS: CefTRIAXone/D5W-Rocephin 1gm 50 ML IV SCH (09:29)
[2021-03-09] MEDS: docusate sod 100mg capsule PO SCH ×2 (09:29→20:28)
[2021-03-09] MEDS: HYDROcodone/acetaminophen 5mg/325mg tablet PO PRN ×3 (09:30→20:20)
[2021-03-09] MEDS: azithromycin 250mg tablet PO SCH (09:30)
[2021-03-09] MEDS: lactobacillus rhamnosus 10,000 MMU CELLS/CAPSULE PO SCH ×2 (09:31→20:17)
[2021-03-09] MEDS: methylPREDNISolone sod succ/PF 40mg inj. IV SCH ×2 (09:59→20:18)
[2021-03-09] MEDS: normal saline 1000ml 1,000 ML IV SCH (15:50)
--- NOTE | 2021-03-09 16:03 | NUR ---
Patient in room PCU 3014. I have received report from Fadi ANAND PCU Traveler and had the opportunity to ask questions and assume patient care.
[2021-03-09] MEDS: lactose-reduced food (Ensure Enlive) - 237ml bottle PO SCH (17:30)
--- NOTE | 2021-03-09 18:00 | NUR ---
Student documentation: I have reviewed and agree with all interventions, assessments performed and documented by Candis Mccoy [facility] student. Addendum: 03/09/21 at 1915 by Agatha Leija RN wrong pt
--- NOTE | 2021-03-09 18:20 | NUR ---
Problems reprioritized. Patient report given, questions answered & plan of care reviewed with Yony ANAND Traveler.
[2021-03-10] MEDS: CLINDAMYCIN 300mg/NS 50ml IVPB 50 ML IV SCH ×2 (01:01→10:09)
[2021-03-10] MEDS: normal saline 1000ml 1,000 ML IV SCH (01:50)
[2021-03-10] MEDS: lactose-reduced food (Ensure Enlive) - 237ml bottle PO SCH (07:30)
[2021-03-10] MEDS: K and/or MAG REPLACEMENT MC SCH (08:00)
[2021-03-10] MEDS: lactobacillus rhamnosus 10,000 MMU CELLS/CAPSULE PO SCH (08:55)
[2021-03-10] MEDS: docusate sod 100mg capsule PO SCH (08:55)
[2021-03-10] MEDS: azithromycin 250mg tablet PO SCH (08:56)
[2021-03-10] MEDS: thiamine 100mg tablet PO SCH (08:56)
[2021-03-10] MEDS: CefTRIAXone/D5W-Rocephin 1gm 50 ML IV SCH (08:58)
[2021-03-10] MEDS: HYDROcodone/acetaminophen 5mg/325mg tablet PO PRN (08:58)
[2021-03-10] MEDS: methylPREDNISolone sod succ/PF 40mg inj. IV SCH (09:00)
[2021-03-10] MEDS: heparin, porcine 5000 units/ml vial SQ SCH (09:00)
[2021-03-10] MEDS ORDERED: PRED20TA PO (10:02)
--- NOTE | 2021-03-10 11:00 | NUR ---
Patient stable and appropriate for discharge home. IV removed, most belongings taken from room, patient left 2 sweaters and one pair of pants in the room intentionally. He was given 2 pairs of hospital pants and a bus pass. All discharge instructions and education given and reviewed with patient, all questions answered. 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 He ignored all instructions and education but he did verbalize understanding of all.
== END 2021-03-10 11:00 | disposition home or self-care (01) | DRG 133 ==
LOC: ER 15:35 → ED HOLD 19:55 → PCU 3S 21:33 → SUR 3N 03-09 16:17
PROVIDERS: ADMIT Internal Medicine; ATTEND Internal Medicine
PROC: XW023U6 Introduction of COVID-19 Vaccine into Muscle, Percutaneous Approach, New Technology Group 6 (ICD-10-PCS; principal; 2021-03-06)
DX: J96.01 Acute respiratory failure with hypoxia (principal); I46.9 Cardiac arrest, cause unspecified; J69.0 Pneumonitis due to inhalation of food and vomit; E87.2 Acidosis; R56.9 Unspecified convulsions; E83.42 Hypomagnesemia; Z20.822 Contact with and (suspected) exposure to COVID-19; F10.239 Alcohol dependence with withdrawal, unspecified; I10 Essential (primary) hypertension; F12.90 Cannabis use, unspecified, uncomplicated; Z59.00 Homelessness unspecified; Z23 Encounter for immunization; Z56.0 Unemployment, unspecified; Z79.899 Other long term (current) drug therapy
CPT/HCPCS: 0002A; 36415; 71045; 80053; 82948; 83605; 83735; 83880; 84145; 84484; 85007; 85025; 87040; 87070; 87081; 87635; 91300; 93005; 93306; 94667; 94668; 94760; 96365; 97116; 97161; 97530; 99285; C9803; G0378; J0456; J0696; J1644; J2060; J2270; J2405; J2920; J3475; J3490; J7030